=== PATIENT | male | born 1975 | race Hispanic/Latino ===

== ENCOUNTER 2016-09-19 01:19 | Inpatient (IN) | payer MEDICAID ==
--- NOTE | 2016-09-19 01:55 | C.PDOC ---
History Of Present Illness 41 y/o transferred from [facility] for psychiatric admission. Patient was pre screened there and medically cleared with a diagnosis of bipolar disorder and suicidal. Patient was sent to ED for admission under Dr. Gomez services. At ed patient admits to having suicidal ideation and is non compliant with medications. No physical complaints at this time. Time Seen by Provider: 09/19/16 01:35 Chief Complaint (Nursing): Psychiatric Evaluation History Per: Patient History/Exam Limitations: no limitations Onset/Duration Of Symptoms: Hrs Current Symptoms Are (Timing): Still Present Suicide/Self Injury Attempted (Context): None Additional History Per: EMS Past Medical History Reviewed: Historical Data, Nursing Documentation, Vital Signs Vital Signs: Last Vital Signs Temp 97.5 F L 09/19/16 01:23 Pulse 80 09/19/16 02:20 Resp 14 09/19/16 02:20 BP 120/80 09/19/16 02:20 Pulse Ox 99 09/19/16 02:20 - Medical History PMH: Seizures Family History: States: No Known Family Hx - Social History Hx Alcohol Use: Yes Hx Substance Use: Yes - Immunization History Hx Tetanus Toxoid Vaccination: No Hx Influenza Vaccination: No Hx Pneumococcal Vaccination: No Review Of Systems Except As Marked, All Systems Reviewed And Found Negative. Constitutional: Negative for: Fever, Chills Gastrointestinal: Negative for: Nausea, Vomiting, Diarrhea Skin: Negative for: Rash Neurological: Negative for: Weakness Psych: Positive for: Suicidal ideation. Negative for: Anxiety Physical Exam - Physical Exam Appears: Toxic, No Acute Distress Skin: Normal Color, Warm Head: Atraumatic, Normacephalic Oral Mucosa: Moist Cardiovascular: Rhythm Regular, No Murmur Respiratory: Normal Breath Sounds, No Rales, No Rhonchi, No Wheezing Gastrointestinal/Abdominal: Soft, No Tenderness, No Guarding, No Rebound Extremity: Normal ROM, Capillary Refill (<2 seconds) Neurological/Psych: Oriented x3, Normal Speech ED Course And Treatment O2 Sat by Pulse Oximetry: 100 (RA) Pulse Ox Interpretation: Normal Medical Decision Making Medical Decision Making: Transfer papers reviewed and appear normal Patient will be admitted Disposition - Disposition Disposition: HOSPITALIZED Disposition Time: 01:54 Condition: STABLE - Clinical Impression Clinical Impression: Suicidal ideation, Bipolar 2 disorder - Scribe Statement The provider has reviewed the documentation as recorded by the Scribbabatunde Galloway All medical record entries made by the Scribe were at my direction and personally dictated by me. I have reviewed the chart and agree that the record accurately reflects my personal performance of the history, physical exam, medical decision making, and the department course for this patient. I have also personally directed, reviewed, and agree with the discharge instructions and disposition.
[2016-09-19 02:36] VITALS: O2SAT 100
--- NOTE | 2016-09-19 08:40 | PCM.BM ---
<Lynda Garcia - Last Filed: 09/19/16 08:37> Treatment Plan Problems - Problems identified on initial assessmt Problem 1 Date Initiated: 09/19/16 Time Initiated: 08:41 Treatment assets and liabiliti Patient Assests: adapts well, educated, ADL independent, cognitively intact Patient Liabilities: other - Milieu Protocol Maintain good personal hygiene: every shift Encourage regular showers, every shift Remind patient to perform daily oral care Conduct patient checks and document Observation sheet: Q15 minutes Maintain personal safety: every shift Educate patient to report safety concerns to staff, every shift Monitor environment for contraband/sharps Medication safety: Monitor for expected outcome, potential side effects: every shift, Assess barriers to learning: every shift, Assess readiness for medication education: every shift <Tracy Oviedo - Last Filed: 09/19/16 10:50> Family Contact Family involvement: Family/SO is involved Family contact: Patient agrees to contact, Patient declines to allow family contact at present - Goals for Treatment Patient goals for treatment: "I need to go to therapy." Discharge/Continuing Care - Education Needs Education Needs: Patient Medication, Patient Coping Skills, Patient Community resources - Discharge Discharge Criteria: Tolerates medication w/o severe side effects, Free of Suicidal thoughts Discharge to:: Home - Treatment Team Participation Discussed with Family/SO: No Was Patient/Family/SO present at Treatment Team Meeting: Yes <Jamaica Gomez - Last Filed: 09/19/16 12:46> - Diagnosis (1) Bipolar 1 disorder, depressed, severe Status: Acute Interventions: 09/19/16 12:45 * Assess/adjust medications daily and /or as needed * See patient on an individual basis 7x/week to assess level of manic behaviors and stability * Discuss risks, benefits, side effects and alternatives of medications * (2) Suicidal ideation Status: Acute Interventions: 09/19/16 12:45 * Assess/adjust medications daily and /or as needed * Discuss risks, benefits, side effects and alternatives of medications * See patient on an individual basis 7x/week to assess level of suicidal thoughts * (3) Alcohol use disorder, severe, dependence Status: Acute Interventions: 09/19/16 12:46 * Assess 7x/week regarding severity of withdrawal * Educate regarding risks, benefits, side effects and alternatives of medications * Use Motivational Interviewing for abstinence * Use CBT for relapse prevention * Medication management for withdrawal symptoms * Encourage medication assisted treatment *
[2016-09-19] MEDS: Multiple Vitamins Tab PO SCH (10:41)
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
[2016-09-20] MEDS: Multiple Vitamins Tab PO SCH (09:36)
--- NOTE | 2016-09-20 20:06 | PCM.PYCHPN ---
Psychiatric Progress Note - Psychiatric Progress Note Patient seen today, length of contact: 15 minutes Patient Chief Complaint: I'm OK and need Klonopin Problems Identified/Issues Discussed: Pt was seen and evaluated. Chart reviewed and nurse input received. He reproted that he is feeling "OK." He stated that he had lots of stigmatization due to drinking alcohol. He reported that he needs klonopin because he had anxiety issues. However, due to his drinking etoh no one trust on him and no one is prescribing Klonopin to him for sleep. He denied alcohol withdrawal symptoms. He stated that his appetite is fine. He denied any A/V/H. he denied paranoid delusions. He denied SI, HI, intent or plan. Medical Problems: none reported Diagnostic Results: no new labs, his vitals are stable DSM 5 Symptoms Update: Bipolar 1 disorder, depressed, severe r/o mixed episode Alcohol use d/o - severe Alcohol withdrawal r/o Borderline pers. d/o Personality d/o - unspecified PTSD Medication Change: No Medical Record Reviewed: Yes Consults ordered or reviewed: no Mental Status Examination - Cognitive Function Orientation: Person, Place, Situation, Time Memory: Intact Attention: WNL Concentration: WNL Association: [facility] Fund of Knowledge: [facility] Decription of patient's judgement and insights: Limited judgment and insight - Mood Mood: Depressed, Anxious - Affect Affect: Constricted - Speech Speech: Appropriate - Formal Thought Process Formal Thought Process: No Impairment, Circumstantial Psychotic Thoughts and Behaviors: Denied A/V/H, Paranoid delusions - Suicidal Ideation Suicidal Ideation: No Goal/Treatment Plan - Goal/Treatment Plan Need for Continued Stay: Severe depression anxiety, Severe functional impairment Progress Toward Problem(s) and Goals/Treatment Plan: - Recommended/Plan of Treatment Treatment Recommendations and Plan of Treatment: Bipolar d/o: Seroquel 100 mg bid and 300 mg hs Support and psychoed CBT PTSD, anxiety; Gabapentin Supportive tx and CBT Pers. d/o: Limit setting and structure refer to therapy Alcohol: Librium detox Gabapentin for augmentation As needed meds and vitamins Attend groups and activities [place] for abstinence and CBT for relapse prevention Support and psychoeducation Consider and encourage MAT Refer to after care 33 min Estimated Date of D/C: 09/26/16 - Smoking Cessation Smoking Cessation Initiated: No
[2016-09-21] MEDS: Multiple Vitamins Tab PO SCH (09:32)
--- NOTE | 2016-09-21 17:13 | PCM.PYCHPN ---
Psychiatric Progress Note - Psychiatric Progress Note Patient seen today, length of contact: 15 minutes Patient Chief Complaint: I'm OK Problems Identified/Issues Discussed: Pt was seen and evaluated. Chart reviewed and nurse input received. He reported that he is feeling "OK." He stated that he slept well last night. He had no issues to talk. He stated that his appetite is fine. He denied any A/V/H. he denied paranoid delusions. He denied SI, HI, intent or plan. Medical Problems: none reported Diagnostic Results: no new labs, his vitals are stable Medication Change: No Medical Record Reviewed: Yes Mental Status Examination - Cognitive Function Orientation: Person, Place, Situation, Time Memory: Intact Attention: WNL Concentration: WNL Association: WNL Fund of Knowledge: [facility] Decription of patient's judgement and insights: Limited judgment and insight regarding his illness and he is more interested in Klonopin - Mood Additional comments: I'm OK - Affect Affect: Constricted Additional comments: to irritable - Speech Speech: Appropriate - Formal Thought Process Formal Thought Process: No Impairment, Other (goal directed (wants klonopin should be started)) Psychotic Thoughts and Behaviors: Denied A/V/H, Paranoid delusions - Suicidal Ideation Suicidal Ideation: No - Homicidal Ideation Homicidal Ideation: No Goal/Treatment Plan - Goal/Treatment Plan Need for Continued Stay: Severe depression anxiety, Severe functional impairment Progress Toward Problem(s) and Goals/Treatment Plan: - Recommended/Plan of Treatment Treatment Recommendations and Plan of Treatment: Bipolar d/o: Seroquel 100 mg bid and 300 mg hs Support and psychoed CBT PTSD, anxiety; Gabapentin Supportive tx and CBT Pers. d/o: Limit setting and structure refer to therapy Alcohol: Librium detox Gabapentin for augmentation As needed meds and vitamins Attend groups and activities [place] for abstinence and CBT for relapse prevention Support and psychoeducation Consider and encourage MAT Refer to after care 16 min Estimated Date of D/C: 09/26/16 - Smoking Cessation Smoking Cessation Initiated: Yes Reason for not providing: pt is not interested
[2016-09-22] MEDS: Multiple Vitamins Tab PO SCH (09:30)
--- NOTE | 2016-09-22 12:49 | PCM.PYCHPN ---
Psychiatric Progress Note - Psychiatric Progress Note Patient seen today, length of contact: 17 min Patient Chief Complaint: "Still anxious" Problems Identified/Issues Discussed: The patient is seen, chart reviewed and case discussed. He is calmer today, compared to Thursday. He still wants Klonopin, though, but he is not insisting as much as Thursday and clearly is not agitated. Risks of benzos discussed and he understood. He will try increased dose of gabapentin and BuSpar first he doesn't want SSRIs because of sexual side effects. Support and psychoeducation given [place] used for abstinence Not suicidal anymore. Medication Change: Yes (increase gabapentin, add buspar) Medical Record Reviewed: Yes Mental Status Examination - Cognitive Function Orientation: Person, Place, Situation, Time Memory: Intact Attention: WNL Concentration: WNL Association: WNL Fund of Knowledge: WNL - Mood Mood: Depressed, Anxious - Affect Affect: Constricted - Speech Speech: Appropriate - Formal Thought Process Formal Thought Process: No Impairment, Other (goal directed (wants klonopin should be started)) - Suicidal Ideation Suicidal Ideation: No - Homicidal Ideation Homicidal Ideation: No Goal/Treatment Plan - Goal/Treatment Plan Need for Continued Stay: Severe depression anxiety, Severe functional impairment Progress Toward Problem(s) and Goals/Treatment Plan: Bipolar d/o: Seroquel 100 mg bid and 300 mg hs Support and psychoed CBT PTSD, anxiety; Gabapentin BuSpar Supportive tx and CBT Pers. d/o: Limit setting and structure refer to therapy Alcohol: Librium detox Gabapentin for augmentation As needed meds and vitamins Attend groups and activities [place] for abstinence and CBT for relapse prevention Support and psychoeducation Consider and encourage MAT Refer to after care Estimated Date of D/C: 09/24/16
[2016-09-23 08:13] VITALS: RESP 19
[2016-09-23] MEDS: Multiple Vitamins Tab PO SCH (10:02)
--- NOTE | 2016-09-23 10:36 | PCM.PYCHPN ---
Psychiatric Progress Note - Psychiatric Progress Note Patient seen today, length of contact: 16 min Patient Chief Complaint: "I am better" Problems Identified/Issues Discussed: The pt is seen, chart reviewed, case discussed with staff. The pt is compliant with medications and reports no side-effects. Symptoms are improving but needs more time to stabilize. After care discussed, wants to return [facility] but change his psychiatrist there Support and psychoeducation given. Medication Change: No Medical Record Reviewed: Yes Mental Status Examination - Cognitive Function Orientation: Person, Place, Situation, Time Memory: Intact Attention: WNL Concentration: WNL Association: [facility] Fund of Knowledge: [facility] - Mood Mood: Depressed, Anxious - Affect Affect: Constricted - Speech Speech: Appropriate - Formal Thought Process Formal Thought Process: No Impairment, Other (goal directed (wants klonopin should be started)) - Suicidal Ideation Suicidal Ideation: No - Homicidal Ideation Homicidal Ideation: No Goal/Treatment Plan - Goal/Treatment Plan Need for Continued Stay: Severe depression anxiety, Severe functional impairment Progress Toward Problem(s) and Goals/Treatment Plan: Bipolar d/o: Seroquel 100 mg bid and 300 mg hs Support and psychoed CBT PTSD, anxiety; Gabapentin BuSpar Supportive tx and CBT Inderal prn discussed, will be Rx'ed Pers. d/o: Limit setting and structure refer to therapy Alcohol: Librium detox Gabapentin for augmentation As needed meds and vitamins Attend groups and activities [place] for abstinence and CBT for relapse prevention Support and psychoeducation Consider and encourage MAT Refer to after care Estimated Date of D/C: 09/24/16
[2016-09-24 07:26] VITALS: BP 103/66; PULSE 60; TEMP 97.7
[2016-09-24] MEDS: Multiple Vitamins Tab PO SCH (10:24)
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
== END 2016-09-24 12:58 | disposition home or self-care (01) | DRG 430 ==
LOC: C.ER 01:19 → C.5E 01:55
PROVIDERS: ADMIT Psychiatry & Neurology Psychiatry; ATTEND Psychiatry & Neurology Psychiatry
PROC: GZ58ZZZ Individual Psychotherapy, Cognitive-Behavioral (ICD-10-PCS; principal; 2016-09-19)
PROC: GZ56ZZZ Individual Psychotherapy, Supportive (ICD-10-PCS; 2016-09-19)
PROC: HZ2ZZZZ Detoxification Services for Substance Abuse Treatment (ICD-10-PCS; 2016-09-19)
DX: F31.81 Bipolar II disorder (principal); R45.851 Suicidal ideations; F10.230 Alcohol dependence with withdrawal, uncomplicated; F43.10 Post-traumatic stress disorder, unspecified